=== PATIENT | male | born 2000 | race Caucasian/White ===

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

== ENCOUNTER → 2021-06-07 | Outpatient (CLI) | payer OTHER | END | disposition home or self-care (01) | LOC: COVID19 15:58 | PROVIDERS: ATTEND Student in an Organized Health Care Education/Training Program | DX: U07.1 COVID-19 (principal) ==

== ENCOUNTER 2024-12-20 18:52 | Emergency (ER) | payer OTHER, BC ==
[~2024-12-20] VITALS: Ht 172.7 cm; Wt 81.6 kg
[2024-12-20] MEDS ORDERED: Bacitracin Zinc 14 GM TUBE T ONE (20:10)
[2024-12-20] MEDS ORDERED: CEPHALEXIN 500 MG CAP PO ONE (20:10)
[2024-12-20] MEDS ORDERED: Lidocaine Hydrochloride 2% 10 ML AMP SC ONE (20:10)
[2024-12-20] MEDS ORDERED: CEPHALEXIN500 M1 PO (21:30)
== END 2024-12-20 21:41 | disposition home or self-care (01) ==
LOC: ED 18:52
DX: S01.21XA Laceration without foreign body of nose, initial encounter (principal); W22.8XXA Striking against or struck by other objects, initial encounter; Y93.89 Activity, other specified; Y92.69 Other specified industrial and construction area as the place of occurrence of the external cause; Y99.0 Civilian activity done for income or pay

== ENCOUNTER → 2024-12-29 | Outpatient (CLI) | payer OTHER, BC ==
[~2024-12-29] MED LIST changes: +CEPHALEXIN500 M1 PO
== END | disposition home or self-care (01) ==
LOC: WOUNDCARE 01:59
PROVIDERS: ATTEND Nurse Practitioner Family
DX: S01.21XA Laceration without foreign body of nose, initial encounter (principal); S09.93XA Unspecified injury of face, initial encounter; F17.210 Nicotine dependence, cigarettes, uncomplicated; X58.XXXA Exposure to other specified factors, initial encounter; Y93.89 Activity, other specified; Y92.89 Other specified places as the place of occurrence of the external cause; Y99.8 Other external cause status